=== PATIENT | male | born 1995 | race Two or more races ===

== ENCOUNTER 2020-01-15 15:44 | Emergency (ER) | payer OTHER ==
[~2020-01-15] VITALS: Ht 182.9 cm; Wt 109.8 kg
[2020-01-15 15:55] VITALS: BP 142/74
[2020-01-15] MEDS ORDERED: KETOROLAC TROMETH 60MG/2ML VIAL IM ONE (16:30)
== END 2020-01-15 17:11 | disposition home or self-care (01) ==
LOC: ER 15:44
DX: S39.012A Strain of muscle, fascia and tendon of lower back, initial encounter (principal); X50.9XXA Other and unspecified overexertion or strenuous movements or postures, initial encounter; Y93.89 Activity, other specified; Y92.89 Other specified places as the place of occurrence of the external cause; Y99.8 Other external cause status
CPT/HCPCS: 96372; 99283; J1885